=== PATIENT | male | born 1975 | race Caucasian/White ===

== ENCOUNTER 2023-08-28 20:45 | Emergency (ER) | payer BC ==
[~2023-08-28] VITALS: Ht 170.2 cm; Wt 73.9 kg
[2023-08-28 21:38] VITALS: BP 148/70; TEMP 98.4; O2SAT 98
== END 2023-08-28 23:36 | disposition home or self-care (01) ==
LOC: ER 20:57
DX: J06.9 Acute upper respiratory infection, unspecified (principal); R05.9 Cough, unspecified; R09.81 Nasal congestion; E11.9 Type 2 diabetes mellitus without complications; Z20.822 Contact with and (suspected) exposure to COVID-19
CPT/HCPCS: 71045-TC